=== PATIENT | female | born 2000 | race African-American/Black ===

== ENCOUNTER 2020-04-13 11:13 | Emergency (ER) | payer SELFPAY ==
[~2020-04-13] VITALS: Ht 167.6 cm; Wt 49.9 kg
== END 2020-04-13 12:00 | disposition home or self-care (01) ==
LOC: FSED 11:59
DX: R10.9 Unspecified abdominal pain (principal); K43.9 Ventral hernia without obstruction or gangrene
CPT/HCPCS: 81003; 81025; 99282

== ENCOUNTER 2020-08-24 11:21 | Emergency (ER) | payer SELFPAY ==
[~2020-08-24] VITALS: Ht 165.1 cm; Wt 49.9 kg
[2020-08-24] MEDS ORDERED: IBUPROFEN 600 MG TAB PO STA (12:30)
[2020-08-24] MEDS ORDERED: BACITRACIN ZINC 0.9GM TP ONE (12:30)
[2020-08-24] MEDS ORDERED: IBUPROFEN 600 MG TAB ONE (12:40)
[2020-08-24] MEDS ORDERED: CEPHALEXIN500 MG PO (12:42)
[2020-08-24] MEDS ORDERED: IBUPROFEN600 MG PO (12:43)
== END 2020-08-24 13:10 | disposition home or self-care (01) ==
LOC: FSED 12:16
DX: S91.201A Unspecified open wound of right great toe with damage to nail, initial encounter (principal); M79.674 Pain in right toe(s)
CPT/HCPCS: 99283

== ENCOUNTER 2020-09-09 17:25 | Emergency (ER) | payer SELFPAY ==
[~2020-09-09] VITALS: Ht 165.1 cm; Wt 49.9 kg
[~2020-09-09 17:25] MED LIST: CEPHALEXIN500 MG PO; IBUPROFEN600 MG PO
== END 2020-09-09 20:15 | disposition home or self-care (01) ==
LOC: FSED 17:48
DX: R00.2 Palpitations (principal)
CPT/HCPCS: 71045; 93005; 99283